=== PATIENT | male | born 1965 | race Caucasian/White ===

== ENCOUNTER 2020-10-21 13:36 | Emergency (ER) | payer MEDICAID ==
[~2020-10-21] VITALS: Ht 170.2 cm; Wt 93.2 kg
[2020-10-21 13:49] VITALS: BP 138/78
[2020-10-21] MEDS ORDERED: IBUPROFEN 400 MG TABLET PO ONE (15:00)
== END 2020-10-21 17:24 | disposition home or self-care (01) ==
LOC: EMS 13:38
DX: M25.561 Pain in right knee (principal); E11.9 Type 2 diabetes mellitus without complications; E78.00 Pure hypercholesterolemia, unspecified; I10 Essential (primary) hypertension; F17.210 Nicotine dependence, cigarettes, uncomplicated